=== PATIENT | female | born 1965 | race Hispanic/Latino ===

== ENCOUNTER 2025-04-26 20:37 | Emergency (ER) | payer SELFPAY ==
[~2025-04-26] VITALS: Ht 160 cm; Wt 63.5 kg
--- NOTE | 2025-04-26 20:53 | EKG ---
[facility] Test Date: 2025-04-26 Test Time: 20:48:34 Pat Name: CLARISSA ALLEN Department: ED Room: Gender: F Choke Reamer: 08 : 1965 Requested By: DANA SHERMAN Order Number: [id number] Reading MD: Mode Morrissey Measurements Intervals Bland Rate: 64 P: 50 AL: 135 QRS: 72 QRSD: 90 T: 49 QT: 397 QTc: 409 Interpretive Statements Sinus rhythm Compared to ECG 06/21/2016 15:08:40 No significant changes Electronically Signed On 04-30-2025 19:46:13 CDT by Mode Morrissey Please click the below link to view image of tracing.
[2025-04-26 21:04] LABS: IMMATURE GRANULOCYTE ABSOLUTE 0.01 K/uL (0-1); NUCLEATED RED BLOOD CELLS 0.0 % (0.0-0.19); PLATELET COUNT (AUTO) 216 K/uL (130-400); RED BLOOD CELL COUNT(AUTO) 3.95 MIL/uL (4.00-5.50); RED CELL DISTRIBUTION WIDTH 12.1 % (11.0-15.5); WHITE BLOOD COUNT (AUTO) 7.1 K/uL (4.8-10.8)
[2025-04-26 21:06] LABS: APPEARANCE,URINE CLEAR (CLEAR); GLUCOSE, URINE (UA) NEGATIVE (NEGATIVE); LEUKOCYTE ESTERASE ,URINE NEGATIVE Leu/uL (NEGATIVE); NITRATE,URINE NEGATIVE (NEGATIVE); OCCULT BLOOD,URINE NEGATIVE (NEGATIVE)
[2025-04-26 21:10] LABS: ADD UA MICROSCOPIC NO
[2025-04-26 21:13] LABS: CREATININE 0.6 mg/dL (0.5-1.0); GLOMERULAR FILTR. RATE CALC 105.0 mL/min (>90); GLUCOSE,RANDOM 90.0 mg/dL (70-105); SODIUM SERUM 140.0 mmol/L (136-145); UREA NITROGEN, BLOOD 19.0 mg/dL (7-18)
[2025-04-26 21:22] LABS: CREATINE KINASE, TOTAL 67.0 U/L (21-232)
--- NOTE | 2025-04-26 22:02 | HMCIMG ---
EXAM: CR Chest, 1 view CLINICAL HISTORY: Chest pain. COMPARISON: Chest radiograph dated 06/21/2016. FINDINGS: Hyperinflated lungs, likely mild COPD. The lungs show no infiltrates or other acute findings. No pleural effusion or pneumothorax. The cardiomediastinal silhouette is within normal limits. No acute osseous abnormality. IMPRESSION: No acute cardiopulmonary process is evident. Mild COPD. No gross interval changes. /[place]
[2025-04-26] MEDS: BUDESONIDE 0.5 MG/2 ML INH IH ONE (22:59)
[2025-04-26] MEDS: BUDESONIDE 0.5 MG/2 ML INH IH SCH (23:00)
[2025-04-26 23:03] VITALS: PULSE 67; RESP 16
--- NOTE | 2025-04-27 00:50 | ERN ---
General Chief Complaint: Chest Pain Stated Complaint: C/O CP WITH UPPER BACK PAIN Time Seen by MD: 20:44 History of Present Illness Initial Comments Susy Angeles is a very pleasant 59-year-old female with no significant past medical history who comes in with a chief complaint of chest discomfort. Patient reports since she has been having on and on off again chest pain. She reports the pain has been squeezing in nature. Patient reports she has no past medical history or CAD. She has describes the pain not associated with activity. Allergies: Coded Allergies: No Known Allergies (Unverified Allergy, Unknown, 04/26/25) Past Medical History Past Medical History: No Pertinent History Past Surgical History: None ROS Dictation Constitutional: Negative for fever,chills, and weight loss Eyes: Negative for injury, pain,redness, and discharge ENT: Negative for injury,pain or swelling Cardiovascular: Positive for chest discomfort Respiratory: Negative for shortness of breath, cough, and wheezing, Abdomen/GI: Negative for abdominal pain, nausea, vomiting, diarrhea, and constipation Back: Negative for injury and pain : Negative for injury, bleeding and discharge MS/Extremity: Negative for injury and deformity Skin: Negative for rash, and discoloration Neuro: Negative for headache, weakness, numbness, tingling, and seizure Psych: Negative for suicide ideation, homicidal ideation, and hallucinations Physical Exam Physical Exam Dictation General: awake, alert, NAD Head/Face: Normocephalic, atraumatic Eyes: PERRL, EOMI, vision at baseline ENT: oral cavity clear, TMs clear, no signs of infection Neck: Trachea midline, supple, no nuchal rigidity Cardiovascular: RRR, normal S1/S2, No MRGs, no JVD Respiratory: CTAB, no respiratory distress, No rales or wheezes Abdomen: Soft, non-tender, non-distended, normal bowel sounds, no guarding or rebound. Skin: Warm, dry, normal turgor, no rash MS/Extremity: Pulses equal, no cyanosis, neurovascular intact, FROM Neuro: COAx4, GCS 15, strength 5/5, CN 2-12 intact, normal cerebellar exam, normal gait, Psych: Normal behavior, mood, and affect normal Results Laboratory and Microbiology Lab and Micro Result Laboratory Tests Test 04/26/25 20:56 04/27/25 01:02 White Blood Count 7.1 K/uL (4.8-10.8) Red Blood Count 3.95 MIL/uL (4.00-5.50) L Hemoglobin 12.6 g/dL (12.0-16.0) Hematocrit 38.7 % (36-48) Mean Corpuscular Volume 98.0 fL (79-99) Mean Corpuscular Hemoglobin 31.9 pg (27.0-33.0) Mean Corpuscular Hemoglobin Concent 32.6 g/dL (32.0-36.0) Red Cell Distribution Width 12.1 % (11.0-15.5) Platelet Count 216 K/uL (130-400) Mean Platelet Volume 10.1 fL (7.5-10.5) Immature Granulocyte % (Auto) 0.1 % (0-1) Neutrophils (%) (Auto) 38.4 % (40.0-77.0) L Lymphocytes (%) (Auto) 51.1 % (21.0-51.0) H Monocytes (%) (Auto) 7.3 % (3.0-13.0) Eosinophils (%) (Auto) 2.7 % (0.0-8.0) Basophils (%) (Auto) 0.4 % (0.0-5.0) Neutrophils # (Auto) 2.7 K/uL (1.8-7.7) Lymphocytes # (Auto) 3.6 K/uL (1.0-4.8) Monocytes # (Auto) 0.5 K/uL (0.1-1.0) Eosinophils # (Auto) 0.19 K/uL (0.00-0.70) Basophils # (Auto) 0.03 K/uL (0.00-0.20) Absolute Immature Granulocyte (auto 0.01 K/uL (0-1) Nucleated Red Blood Cells 0.0 % (0.0-0.19) Urine Color COLORLESS (YELLOW) Urine Appearance CLEAR (CLEAR) Urine pH 5.5 (5.0-8.0) Urine Specific [place] 1.003 (1.001-1.031) Urine Protein NEGATIVE mg/dL (NEGATIVE) Urine Glucose (UA) NEGATIVE mg/dL (NEGATIVE) Urine Ketones NEGATIVE mg/dL (NEGATIVE) Urine Occult Blood NEGATIVE (NEGATIVE) Urine Nitrate NEGATIVE (NEGATIVE) Urine Bilirubin NEGATIVE mg/dL (NEGATIVE) Urine Urobilinogen 0.2 mg/dL (0.2-1.0) Urine Leukocyte Esterase NEGATIVE Hemant/uL Sodium Level 140 mmol/L (136-145) Potassium Level 3.8 mmol/L (3.5-5.1) Chloride Level 104 mmol/L (101-111) Carbon Dioxide Level 29 mmol/L (21-32) Blood Urea Nitrogen 19 mg/dL (7-18) H Creatinine 0.6 mg/dL (0.5-1.0) Glomerular Filtration Rate Calc 105 mL/min (>90) Random Glucose 90 mg/dL (70-105) Total Calcium 9.1 mg/dL (8.5-10.1) Total Creatine Kinase 67 U/L (21-232) Troponin I High Sensitivity < 4 ng/L (4-50) L < 4 ng/L (4-50) L MDM Ms. Mercedes has had improvement of her discomfort with Pulmicort and albuterol. Patient has been given Toradol for musculoskeletal pain. Chest x-ray does show mild COPD. Troponin is initially negative x 2 patient will be asked to follow up with the primary care physician and evaluated by pulmonary for PFTs MDM: Differential diagnosis: COPD Rationale: Tests considered and ordered secondary to shared decision making include: Previous outside records reviewed: Old ER visits. Risk of complication and/or morbidity or mortality of patient management: None Medications-Per medication reconciliation Need for hospitalization: Patient does not meet criteria for hospitalization. Need for emergency major/minor surgery: No There are no social concerns with this patient. Prescription drug management Prescriptions will include symptomatic care Patient's prior external medical records from other ER visits were reviewed by me as indicated. Prior testing and results from previous visits were reviewed. Prior tests were taken into account with medical decision making and resource utilization, independent historian/historians were used to obtain complete medical history. I independently interpreted the test that were performed, results were reviewed by me and considered findings on radiology if ordered. Medical management and examination interpretation discussions were had by me with other qualified healthcare professionals as indicated for the patient's care. ED Course Orders Procedure Category Date Status Time Vital Signs Per CPOE 04/26/25 Transmitted Routine 20:45 Chest 1vw RAD 04/26/25 Resulted 20:45 12 Lead Ekg Tracing- EKG 04/26/25 Complete Technical 20:45 Oxygen By Nc/Pulse Ox CPOE 04/26/25 Transmitted 20:45 Maintain Iv CPOE 04/26/25 Transmitted 20:45 Iv Insertion CPOE 04/26/25 Transmitted 20:45 Cardiac Monitoring CPOE 04/26/25 Transmitted 20:45 Pulse Oximetry With CPOE 04/26/25 Transmitted Vs And Prn 20:45 Cbc With Differential LAB 04/26/25 Complete 20:45 Activity: Br W/Brp CPOE 04/26/25 Transmitted With Assist 20:45 Creatine Kinase, Total LAB 04/26/25 Complete 20:45 Troponin I High LAB 04/26/25 Complete Sensitivity 20:45 Urinalysis Profile LAB 04/26/25 Complete 20:45 Basic Metabolic Panel LAB 04/26/25 Complete 20:45 Budesonide 0.5 Mg/2 PHA 04/27/25 In Process Ml Inh (Pulmicort 0. 06:00 Budesonide 0.5 Mg/2 PHA 04/26/25 Complete Ml Inh (Pulmicort 0. 22:54 Ipratropium/Albuterol PHA 04/26/25 Complete Neb (Duoneb) 23:00 Bedside Troponin-I LAB.ER 04/26/25 In Process (Poc) 22:53 Ipratropium/Albuterol PHA 04/26/25 Complete Neb (Duoneb) 22:56 Ketorolac PHA 04/27/25 Complete Tromethamine 15mg/Ml 00:00 Troponin I High LAB 04/27/25 Complete Sensitivity 00:51 Current Medications Medications (Trade) Dose Ordered Sig/[place] Route PRN Reason Start Time Stop Time Status Last Admin Dose Admin Albuterol (DUOneb) 1 UDVIAL ONCE ONCE 04/26/25 23:00 04/26/25 23:01 DC 04/26/25 23:00 Albuterol (DUOneb) 1 udvial STK-MED ONCE 04/26/25 22:56 04/26/25 22:56 DC Budesonide (Pulmicort 0.5 Mg/2ml) 0.5 mg BIDRESP 04/27/25 06:00 05/27/25 05:59 04/26/25 23:00 Budesonide (Pulmicort 0.5 Mg/2ml) 0.5 mg STK-MED ONCE 04/26/25 22:54 04/26/25 22:54 DC Ketorolac Tromethamine (toRADol) 15 mg ONCE ONCE IV 04/27/25 00:00 04/27/25 00:02 DC 04/27/25 00:22 Vital Signs Date Time Temp Pulse Resp B/P (MAP) Pulse Ox O2 Delivery O2 Flow Rate FiO2 04/27/25 00:24 98.2 62 16 99/64 98 Room Air* 0 21 04/26/25 23:03 67 16 04/26/25 20:57 72 16 110/59 100 Room Air* 0 04/26/25 20:40 98.4 69 20 114/61 98 Room Air DX & DISP Disposition: Discharge Departure Impression: Primary Impression: Non-cardiac chest pain Condition: Stable Additional Instructions: Please follow up with the primary care physician as well as a pulmonary physician to help evaluate any possible obstructive lung disease. Referrals: LEONELA SHERMAN (PCP) DANA SHERMAN MD Apr 27, 2025 00:50
[2025-04-27 02:01] VITALS: BP 104/68; PULSE 64; RESP 16; TEMP 98; O2SAT 98
== END 2025-04-27 02:02 | disposition home or self-care (01) ==
LOC: EDH 20:37
DX: R07.89 Other chest pain (principal); J44.9 Chronic obstructive pulmonary disease, unspecified; Z79.51 Long term (current) use of inhaled steroids
CPT/HCPCS: 99285; 71045; 82550; 84484 ×2; 80048; 85025; 81003; 36415; 93005; 94640; 96374; J1885; 96365; 96366